=== PATIENT | female | born 1960 | race African-American/Black ===

== ENCOUNTER 2019-09-24 05:52 | Inpatient (IN) ==
[~2019-09-24 05:52] MED LIST: VANCOMYCIN 1,000 MG VIAL ONE; ceFAZolin 1,000 MG VIAL ONE
[2019-09-24] MEDS ORDERED: ceFAZolin 1,000 MG in SYRINGE 1 EACH IV ONE (06:00)
[2019-09-24] MEDS ORDERED: VANCOMYCIN INJ 1,000 MG in SODIUM CHLORIDE 0.9% 250 ML IV ONE (06:00)
[2019-09-24] MEDS ORDERED: ROPIVACAINE 0.5% 30 ML VIAL ONE (06:34)
[2019-09-24] MEDS ORDERED: LIDOCAINE 1% 5 ML VIAL ONE (06:34)
[2019-09-24] MEDS ORDERED: DEXMEDETOMIDINE 200 MCG/2 ML VIAL ONE (06:34)
[2019-09-24] MEDS ORDERED: DEXAMETHASONE 4 MG/1 ML VIAL ONE ×2 (06:34→09:31)
[2019-09-24] MEDS ORDERED: GABAPENTIN 400 MG CAPSULE ONE (06:36)
[2019-09-24] MEDS ORDERED: FAMOTIDINE 20 MG TABLET ONE (06:37)
[2019-09-24] MEDS ORDERED: ACETAMINOPHEN 500 MG TABLET ONE (06:37)
[2019-09-24] MEDS: LACTATED RINGERS 1,000 ML IV SCH ×2 (06:45→09:44)
[2019-09-24] MEDS ORDERED: GABAPENTIN 400 MG CAPSULE PO ONE (06:59)
[2019-09-24] MEDS ORDERED: FAMOTIDINE 20 MG TABLET PO ONE (06:59)
[2019-09-24] MEDS ORDERED: ACETAMINOPHEN 500 MG TABLET PO ONE (06:59)
[2019-09-24] MEDS ORDERED: BUPIVACAINE SPINAL 0.75% 2 ML AMP SPINAL ONE (07:10)
[2019-09-24] MEDS ORDERED: TRANEXAMIC ACID 1,000 MG/10 ML VIAL ONE (07:11)
[2019-09-24] MEDS ORDERED: BISACODYL 10 MG SUPP RECTAL PRN (07:12)
[2019-09-24] MEDS ORDERED: diphenhydrAMINE CAP 25 MG CAPSULE PO PRN (07:12)
[2019-09-24] MEDS ORDERED: MAGNESIUM HYDROXIDE SUSP 30 ML UDCUP PO PRN (07:12)
[2019-09-24] MEDS ORDERED: TEMAZEPAM 7.5 MG CAPSULE PO PRN (07:12)
[2019-09-24] MEDS ORDERED: MORPHINE 4 MG/1 ML VIAL IV PRN ×2 (07:12→07:58)
[2019-09-24] MEDS ORDERED: LACTULOSE 20 GM/30 ML UDCUP PO PRN (07:12)
[2019-09-24] MEDS ORDERED: ONDANSETRON 4 MG/2 ML VIAL IV PRN (07:12)
[2019-09-24] MEDS ORDERED: PROMETHAZINE 25 MG/1 ML VIAL IM PRN (07:12)
[2019-09-24] MEDS ORDERED: MELOXICAM 7.5 MG TABLET PO PRN (07:15)
[2019-09-24] MEDS ORDERED: PANTOPRAZOLE 40 MG TABLET PO PRN (07:15)
[2019-09-24] MEDS ORDERED: ALBUTEROL 2.5 MG/3 ML NEB RESP TX PRN (07:15)
[2019-09-24] MEDS ORDERED: FAMOTIDINE 20 MG/2 ML VIAL IV ONE (07:47)
[2019-09-24] MEDS ORDERED: SUGAMMADEX 200 MG/2 ML VIAL IV ONE (08:59)
[2019-09-24 09:29] LABS: Apearance,Urine CLEAR (Clear); Bilirubin,Urine Negative (Negative); Blood, Urine Negative (Negative); Glucose,Urine (UA) Negative (Negative); Ketones,Urine Negative (Negative); Mucus,Urine Occasional /LPF (Occasional); Nitrite,Urine Negative (Negative); Protein,Urine Negative; RBC,Urine <1 /HPF (0-4); Urine Color Yellow (Yellow); Urine Specific Gravity 1.012 (1.001-1.035); Urine Urobilinogen < 2.0 EU/DL (0.2-1.0); WBC,Urine <1 /HPF (0-6)
[2019-09-24] MEDS ORDERED: SEVOFLURANE 1 UNIT/15 MINUTE INH ONE (09:30)
[2019-09-24] MEDS ORDERED: propofoL 200 MG/20 ML VIAL IV ONE (09:30)
[2019-09-24] MEDS ORDERED: LIDOCAINE 2% 5 ML VIAL ONE (09:30)
[2019-09-24] MEDS ORDERED: ROCURONIUM 100 MG/10 ML VIAL IV ONE (09:31)
[2019-09-24] MEDS ORDERED: diphenhydrAMINE 50 MG/1 ML VIAL ONE (09:31)
[2019-09-24] MEDS ORDERED: fentaNYL 100 MCG/2 ML VIAL ONE (09:31)
[2019-09-24] MEDS ORDERED: MIDAZOLAM 2 MG/2 ML VIAL ONE (09:31)
[2019-09-24] MEDS ORDERED: ONDANSETRON 4 MG/2 ML VIAL ONE ×2 (09:31)
[2019-09-24] MEDS ORDERED: PHENYLEPHRINE 1 MG/10 ML SYRINGE IV ONE (09:31)
[2019-09-24] MEDS ORDERED: HYDROmorphone 2 MG/1 ML VIAL IV PRN (10:41)
[2019-09-24] MEDS: ceFAZolin 2,000 MG in PREMIX 1 EACH IV SCH ×2 (15:30→21:08)
[2019-09-24] MEDS: POTASSIUM CHLORIDE 10 MEQ TABLET PO SCH ×2 (16:08→21:07)
[2019-09-24] MEDS: ASPIRIN CHEW 81 MG TABLET PO SCH (16:08)
[2019-09-24] MEDS: DOCUSATE SODIUM 100 MG CAPSULE PO SCH (21:07)
[2019-09-25 06:22] LABS: Basophils % 0.2 % (0.0-0.8); Eosinophils % 0.2 % (0.00-10.9); Hemoglobin 12.3 GM/DL (12.0-16.0); Immature Granulocytes % 0.5 %; Immature Granulocytes Absolute 0.06 #; Lymphocytes # 2.3 10*3/uL (1.4-4.0); Lymphocytes % 17.4 % (21.3-54.2); Mean Corpuscular HGB Conc 32.4 GM/DL (32-36); Mean Corpuscular Volume 90.9 FL (87-102); Mean Platelet Volume 9.3 FL (9.6-12.0); Monocytes % 20.1 % (1.7-12.7); Neutrophils % 61.6 % (38.7-73.9); Platelet Count 589 T/CUMM (130-400); Red Blood Count 4.18 MC/CUMM (3.8-5.5); Red Cell Distribution Width 14.3 % (9.3-17.3)
[2019-09-25] MEDS: LEVOTHYROXINE 137 MCG TABLET PO SCH (06:24)
[2019-09-25 06:59] LABS: Calcium 8.5 MG/DL (8.5-10.1); Osmolality,Calculated 278.7 MOS/KG (273-304)
[2019-09-25 07:11] LABS: Hypochromasia 1+; Lymphocytes 21 % (20-55); Ovalocytes Slight; Platelet Estimate Increased; Segmented Neutrophils 62 % (50-85); Total Cells Counted 100
[2019-09-25] MEDS: POTASSIUM CHLORIDE 10 MEQ TABLET PO SCH ×2 (09:49→20:55)
[2019-09-25] MEDS: CHLORTHALIDONE 25 MG TABLET PO SCH (09:49)
[2019-09-25] MEDS: MULTIVITAMIN (CENTRUM) TABLET PO SCH (09:49)
[2019-09-25] MEDS: ASPIRIN CHEW 81 MG TABLET PO SCH (09:49)
[2019-09-25] MEDS: FENOFIBRATE 160 MG TABLET PO SCH (09:49)
[2019-09-25] MEDS: ROSUVASTATIN 20 MG TABLET PO SCH (09:49)
[2019-09-25] MEDS: DOCUSATE SODIUM 100 MG CAPSULE PO SCH ×2 (09:49→20:55)
[2019-09-25] MEDS: LACTATED RINGERS 1,000 ML IV SCH (10:31)
[2019-09-25] MEDS ORDERED: POTASSIUM CHLORIDE 20 MEQ TABLET PO ONE (12:00)
[2019-09-25] MEDS: FONDAPARINUX 2.5 MG/0.5 ML SYRINGE SUBCUT SCH (20:55)
[2019-09-26] MEDS: LEVOTHYROXINE 137 MCG TABLET PO SCH (06:14)
[2019-09-26] MEDS ORDERED: MAGNESIUM HYDROXIDE SUSP 30 ML UDCUP PO ONE (08:00)
[2019-09-26] MEDS: POTASSIUM CHLORIDE 10 MEQ TABLET PO SCH ×2 (08:45→20:38)
[2019-09-26] MEDS: ASPIRIN CHEW 81 MG TABLET PO SCH (08:45)
[2019-09-26] MEDS: MULTIVITAMIN (CENTRUM) TABLET PO SCH (08:46)
[2019-09-26] MEDS: CHLORTHALIDONE 25 MG TABLET PO SCH (08:46)
[2019-09-26] MEDS: DOCUSATE SODIUM 100 MG CAPSULE PO SCH ×2 (08:46→20:39)
[2019-09-26] MEDS: FENOFIBRATE 160 MG TABLET PO SCH (08:46)
[2019-09-26] MEDS: ROSUVASTATIN 20 MG TABLET PO SCH (08:46)
[2019-09-26] MEDS ORDERED: TUBERCULIN SKIN TEST 0.1 ML SYRINGE INTRADERM ONE (19:38)
[2019-09-26] MEDS: FONDAPARINUX 2.5 MG/0.5 ML SYRINGE SUBCUT SCH (20:39)
[2019-09-27] MEDS: LACTATED RINGERS 1,000 ML IV SCH (01:22)
[2019-09-27] MEDS: LEVOTHYROXINE 137 MCG TABLET PO SCH (05:35)
[2019-09-27 06:43] LABS: Basophils # 0.1 10*3/uL (0.0-0.2); Basophils % 0.3 % (0.0-0.8); Eosinophils # 0.8 10*3/uL (0.0-0.87); Eosinophils % 4.7 % (0.00-10.9); Hematocrit 32.7 VOL% (35.7-47.0); Hemoglobin 10.5 GM/DL (12.0-16.0); Immature Granulocytes % 0.5 %; Immature Granulocytes Absolute 0.09 #; Lymphocytes # 3.4 10*3/uL (1.4-4.0); Lymphocytes % 20.5 % (21.3-54.2); Mean Corpuscular HGB Conc 32.1 GM/DL (32-36); Mean Corpuscular Volume 90.6 FL (87-102); Monocytes % 13.7 % (1.7-12.7); Neutrophils % 60.3 % (38.7-73.9); Platelet Count 487 T/CUMM (130-400); Red Blood Count 3.61 MC/CUMM (3.8-5.5); Red Cell Distribution Width 14.3 % (9.3-17.3); White Blood Count 16.5 T/CUMM (4-12)
[2019-09-27] MEDS: POTASSIUM CHLORIDE 10 MEQ TABLET PO SCH (11:12)
[2019-09-27] MEDS: MULTIVITAMIN (CENTRUM) TABLET PO SCH (11:12)
[2019-09-27] MEDS: ASPIRIN CHEW 81 MG TABLET PO SCH (11:12)
[2019-09-27] MEDS: DOCUSATE SODIUM 100 MG CAPSULE PO SCH (11:12)
[2019-09-27] MEDS: ROSUVASTATIN 20 MG TABLET PO SCH (11:12)
[2019-09-27] MEDS: CHLORTHALIDONE 25 MG TABLET PO SCH (11:12)
[2019-09-27] MEDS: FENOFIBRATE 160 MG TABLET PO SCH (11:12)
[2019-09-27 17:06] VITALS: BP 125/60
== END 2019-09-27 18:35 | disposition home health service (06) | DRG 470 ==
LOC: N.SDSINP 05:52 → N.3E 14:51
PROVIDERS: ADMIT Orthopaedic Surgery; ATTEND Orthopaedic Surgery